=== PATIENT | male | born 1980 | race Caucasian/White ===

== ENCOUNTER 2019-12-11 22:41 | Observation (INO) | payer MEDICARE ==
[~2019-12-11] VITALS: Ht 190.5 cm; Wt 104.3 kg
[~2019-12-11 22:41] MED LIST: ALBU90I INH; ALBU90OI INH; AMOX500 PO; Amoxicillin500 MG PO; BENZ100A PO; CYCL10 PO; DIVA500EC; ESCI10 PO; Flomax0.4 MG PO; HYDACE10B PO; HYDACE5325 PO; HYDACE7.5 PO; IBUP800 PO; LIDO2L MM; LORA1 PO; MEDICAL MARIJUANA; METPRE4DP PO; METR500 PO; Norco 5-325 Ta1 EACH PO; OXYACE5T PO; PROM25 PO; Percocet 10-321 EACH PO; Prednisone20 MG PO; TRAM50 PO; Veetids 500500 MG PO
[2019-12-11 23:12] LABS: BASOPHILS ABSOLUTE AUTO 0.02 K/mm3 (0.00-0.23); BASOPHILS PERCENT AUTO 0 % (0-2); EOSINOPHILS ABSOLUTE AUTO 0.27 K/mm3 (0.00-0.68); EOSINOPHILS PERCENT AUTO 3 % (0-6); Hematocrit 39.2 % (37.0-53.0); Hemoglobin 13.4 g/dL (13.5-17.5); IMMATURE GRAN ABSOLUTE AUTO 0.01 K/mm3 (0.00-0.10); IMMATURE GRAN PERCENT AUTO 0 % (0-1); LYMPHOCYTES ABSOLUTE AUTO 3.53 K/mm3 (0.84-5.20); LYMPHOCYTES PERCENT AUTO 45 % (21-46); MONOCYTES ABSOLUTE AUTO 0.65 K/mm3 (0.16-1.47); MONOCYTES PERCENT AUTO 8 % (4-13); Mean Corpuscular HGB 30.2 pg (26.0-34.0); Mean Corpuscular HGB Conc 34.2 g/dL (31.5-36.5); Mean Corpuscular Volume 89 fL (80-100); Mean Platelet Volume 9.3 fL (9.1-12.4); NEUTROPHILS ABSOLUTE AUTO 3.38 K/mm3 (1.96-9.15); NEUTROPHILS PERCENT AUTO 43 % (41-73); Platelet Count 251 K/mm3 (150-400); RDW Coefficient Variation 12.9 % (11.7-14.2); RDW Standard Deviation 41.6 fL (35.1-46.3); Red Blood Cell Count 4.43 M/mm3 (4.30-5.90); White Blood Cell Count 7.86 K/mm3 (4.00-11.30)
[2019-12-11 23:29] LABS: International Normalized Ratio 1.3; Prothrombin Time Results 13.7 Sec (9.7-11.5)
[2019-12-11 23:31] LABS: Alanine Aminotransfer (ALT/SGP 18 U/L (12-78); Albumin, Blood 3.3 g/dL (3.4-5.0); Albumin/Globulin Ratio 0.9 (0.8-1.8); Alk Phos 87 U/L (50-136); Anion Gap 5 mmol/L (6-16); Aspartate Aminotrans (AST/SGOT 13 U/L (12-37); Bilirubin, Total 0.3 mg/dL (0.1-1.0); Blood Urea Nitrogen 12 mg/dL (8-24); Bun/Creatinine Ratio 12.9 (12.0-20.0); CO2, Blood 29 mmol/L (21-32); Calcium, Blood 8.4 mg/dL (8.5-10.1); Chloride, Blood 106 mmol/L (98-108); Creatinine, Blood 0.93 mg/dL (0.60-1.20); Ethanol (Alcohol), Blood, Med <3 mg/dL; Globulin, Blood 3.5 g/dL (2.2-4.0); Glomerular Filtration Rate >60 (60-); Glucose, Blood 97 mg/dL (70-99); Potassium, Blood 3.8 mmol/L (3.5-5.5); Sodium, Blood 140 mmol/L (136-145); Total Protein, Blood 6.8 g/dL (6.4-8.2)
== END 2019-12-12 02:33 | disposition left against medical advice (07) ==
LOC: ER 22:41 → ERHOLD 22:42
PROVIDERS: Emergency Medicine; ADMIT Internal Medicine
DX: R53.1 Weakness (principal); Z53.29 Procedure and treatment not carried out because of patient's decision for other reasons; Z88.6 Allergy status to analgesic agent
CPT/HCPCS: 70450; 70496; 70498; 71045; 80053; 85025; 85610; 85730; 93005; 93010; 96374-59; 99285-25; A9270-GY; G0378; G0480; J2060; Q9967

== ENCOUNTER 2020-01-06 13:53 | Emergency (ER) | payer MEDICARE | END 2020-01-06 14:40 | disposition left against medical advice (07) | LOC: ER 13:53 | DX: Z53.21 Procedure and treatment not carried out due to patient leaving prior to being seen by health care provider (principal) ==

== ENCOUNTER 2023-11-04 23:08 | Inpatient (IN) | payer MEDICARE ==
[~2023-11-04] VITALS: Ht 177.8 cm; Wt 95.2 kg
[2023-11-04 23:31] LABS: BASOPHILS ABSOLUTE AUTO 0.04 K/mm3 (0.00-0.23); BASOPHILS PERCENT AUTO 0 % (0-2); EOSINOPHILS PERCENT AUTO 2 % (0-6); Hematocrit 42.4 % (37.0-53.0); Hemoglobin 14.4 g/dL (13.5-17.5); IMMATURE GRAN ABSOLUTE AUTO 0.02 K/mm3 (0.00-0.10); IMMATURE GRAN PERCENT AUTO 0 % (0-1); LYMPHOCYTES ABSOLUTE AUTO 3.17 K/mm3 (0.84-5.20); LYMPHOCYTES PERCENT AUTO 33 % (21-46); MONOCYTES ABSOLUTE AUTO 0.83 K/mm3 (0.16-1.47); MONOCYTES PERCENT AUTO 9 % (4-13); Mean Corpuscular HGB 30.6 pg (26.0-34.0); Mean Corpuscular Volume 90 fL (80-100); Mean Platelet Volume 9.3 fL (9.1-12.4); NEUTROPHILS ABSOLUTE AUTO 5.48 K/mm3 (1.96-9.15); NEUTROPHILS PERCENT AUTO 56 % (41-73); Platelet Count 298 K/mm3 (150-400); RDW Coefficient Variation 13.7 % (11.7-14.2); RDW Standard Deviation 45.5 fL (35.1-46.3); Red Blood Cell Count 4.71 M/mm3 (4.30-5.90); White Blood Cell Count 9.74 K/mm3 (4.00-11.30)
[2023-11-04 23:45] LABS: International Normalized Ratio 1.31; Prothrombin Time Results 13.5 Sec (9.7-11.5)
[2023-11-04 23:54] LABS: Albumin, Blood 4.1 g/dL (3.4-5.0); Bilirubin, Total 0.6 mg/dL (0.1-1.0); Bun/Creatinine Ratio 13.3 (12.0-20.0); Calcium, Blood 9.4 mg/dL (8.5-10.1); Creatinine, Blood 0.98 mg/dL (0.60-1.20); Potassium, Blood 4.1 mmol/L (3.5-5.5); Total Protein, Blood 8.1 g/dL (6.4-8.2)
[2023-11-05] VITALS (21 sets, daily range): BP systolic 106–146; BP diastolic 67–129
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
[2023-11-05 05:21] LABS: International Normalized Ratio 1.25
[2023-11-05 05:46] LABS: Albumin, Blood 3.9 g/dL (3.4-5.0); Bilirubin, Total 0.7 mg/dL (0.1-1.0); Bun/Creatinine Ratio 16.3 (12.0-20.0); Calcium, Blood 9.3 mg/dL (8.5-10.1); Creatinine, Blood 0.8 mg/dL (0.60-1.20); Globulin, Blood 3.9 g/dL (2.2-4.0); Potassium, Blood 3.9 mmol/L (3.5-5.5); Total Protein, Blood 7.8 g/dL (6.4-8.2)
--- NOTE | 2023-11-05 12:22 | NUR ---
PATIENT IS BEING TAKEN BACK TO THE OR.
--- NOTE | 2023-11-05 12:38 | NUR ---
FLUSHED IV SITE 18G RAC WITH 10CC NS/PATENT.
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
--- NOTE | 2023-11-06 04:17 | NUR ---
POD 1 L TIB/FIB ORIF PT ABLE TO SLEEP ALL NIGHT. PAIN MANAGED PER EMAR. VOIDED. ABLE TO WIGGLE TOES. DENIES N/T IN EXT'S. CAP REFILL IN TOES ON L FOOT ARE WNL. VSS. NO OTHER CONCERNS AT THIS TIME. CALL LIGHT WITHIN REACH
[2023-11-06 04:58] VITALS: BP 113/70
[2023-11-06 07:14] VITALS: BP 105/69
[2023-11-06] MEDS ORDERED: Percocet 5-3251 EACH PO (13:51)
[2023-11-06] MEDS ORDERED: SULTRIDS PO (13:52)
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
--- NOTE | 2023-11-06 15:23 | NUR ---
11/06/23 1523 Jessica Willis VERIFICATIONS: EDIT CHART.
--- NOTE | 2023-11-06 15:31 | NUR ---
DISCHARGE ESCORTED OUT VIA WC w/ LOTS OF FRIENDS. SUPPLIES, BELONGINGS, & FWW w/ PT.
[2023-11-07 14:44] LABS: APC RESISTANCE PANEL 7.91 (>=2.00)
[2023-11-07 17:46] LABS: FACTOR V,ACTIVITY 22 % (62-140)
== END 2023-11-06 15:40 | disposition home or self-care (01) | DRG 493 ==
LOC: ER 23:08 → SURS 11-05 03:31
PROVIDERS: Emergency Medicine; Family Medicine; Orthopaedic Surgery; Student in an Organized Health Care Education/Training Program; ADMIT Internal Medicine
PROC: 0QSH06Z Reposition Left Tibia with Intramedullary Internal Fixation Device, Open Approach (ICD-10-PCS; principal; 2023-11-05 12:30)
DX: S82.242B Displaced spiral fracture of shaft of left tibia, initial encounter for open fracture type I or II (principal); D68.2 Hereditary deficiency of other clotting factors; F31.9 Bipolar disorder, unspecified; M54.9 Dorsalgia, unspecified; G89.29 Other chronic pain; F43.10 Post-traumatic stress disorder, unspecified; F98.8 Other specified behavioral and emotional disorders with onset usually occurring in childhood and adolescence; W34.09XA Accidental discharge from other specified firearms, initial encounter; Z98.890 Other specified postprocedural states; Z88.8 Allergy status to other drugs, medicaments and biological substances; Z79.899 Other long term (current) drug therapy
CPT/HCPCS: 36415; 73590; 80053; 85025; 85610; 85730; 86850; 86900; 86901; 86923; 90714; 96374; 96375; 97116; 97162; 97530; 99285-25; A9270; C1713; C1769; J0690; J1100; J1170; J1885; J2060; J2250; J2270; J2405; J2704; J3010; J3370; J3480; J7050; J7120

== ENCOUNTER 2023-11-13 15:13 | Emergency (ER) | payer MEDICARE, OTHER ==
[~2023-11-13] VITALS: Ht 190.5 cm; Wt 122.5 kg
[~2023-11-13 15:13] MED LIST changes: +Percocet 5-3251 EACH PO; +SULTRIDS PO
[2023-11-13 15:40] VITALS: BP 163/115
[2023-11-13] MEDS ORDERED: XARELTO20 MG PO (16:27)
== END 2023-11-13 16:41 | disposition home or self-care (01) ==
LOC: ER 15:13
DX: S81.842 Puncture wound with foreign body, left lower leg (principal); W34.00XD Accidental discharge from unspecified firearms or gun, subsequent encounter; F43.10 Post-traumatic stress disorder, unspecified; F90.0 Attention-deficit hyperactivity disorder, predominantly inattentive type; Z88.6 Allergy status to analgesic agent
CPT/HCPCS: 99282

== ENCOUNTER 2025-06-22 07:10 | Emergency (ER) | payer OTHER ==
[~2025-06-22] VITALS: Ht 190.5 cm; Wt 117.9 kg
[~2025-06-22 07:10] MED LIST changes: +XARELTO20 MG PO
[2025-06-22 07:21] VITALS: BP 144/83
== END 2025-06-22 09:06 | disposition home or self-care (01) ==
LOC: ER 07:10
DX: S61.211A Laceration without foreign body of left index finger without damage to nail, initial encounter (principal); W26.8XXA Contact with other sharp object(s), not elsewhere classified, initial encounter; Z88.8 Allergy status to other drugs, medicaments and biological substances; F43.10 Post-traumatic stress disorder, unspecified
CPT/HCPCS: 12002; 73140; 99283-25; A9270